=== PATIENT | male | born 1990 | race Caucasian/White ===

== ENCOUNTER 2021-02-05 01:49 | Emergency (ER) | payer OTHER ==
[~2021-02-05] VITALS: Ht 180.3 cm; Wt 103.0 kg
[2021-02-05] MEDS ORDERED: BACITRACIN ZINC OINT UDPKT TOP ONE (02:45)
[2021-02-05] MEDS ORDERED: ONDANSETRON HCL 4MG/2ML INJ IV ONE (02:45)
[2021-02-05] MEDS ORDERED: MORPHINE SULFATE 4 MG/ML CPJ (NOT FOR IM USE) IV ONE (02:45)
[2021-02-05] MEDS ORDERED: LIDOCAINE HCL/PF 1% 10 MG/ML 5ML VIAL INFIL ONE (02:45)
[2021-02-05] MEDS ORDERED: CEFAZOLIN 1000MG PREMIX 50 ML IV ONE (02:45)
[2021-02-05] MEDS ORDERED: TETANUS, DIPHTHERIA, PERTUSSIS VAC/PF 0.5ML (>10YR OLD) IM ONE (02:45)
[2021-02-05 03:23] VITALS: BP 128/79
[2021-02-05] MEDS ORDERED: HYDR-4001 MT (05:22)
[2021-02-05] MEDS ORDERED: AMOX1TAB16 MT (05:22)
== END 2021-02-05 05:58 | disposition home or self-care (01) ==
LOC: ER 01:49
DX: S61.412A Laceration without foreign body of left hand, initial encounter (principal); W26.0XXA Contact with knife, initial encounter; Y93.89 Activity, other specified; Y92.89 Other specified places as the place of occurrence of the external cause
CPT/HCPCS: 12002; 90471; 90715; 96365; 96375; 99284; J0690; J2270; J2405; J3490